=== PATIENT | female | born 1965 | race Hispanic/Latino ===

== ENCOUNTER 2022-04-13 15:31 | Emergency (ER) | payer OTHER, BC ==
[2022-04-13] MEDS ORDERED: Ketorolac Tromethamine 30 MG/ML VIAL IVP SCH (16:45)
== END 2022-04-13 17:27 | disposition home or self-care (01) ==
LOC: CSHERS 15:31
DX: S09.90XA Unspecified injury of head, initial encounter (principal); M54.9 Dorsalgia, unspecified; E03.9 Hypothyroidism, unspecified; V43.52XA Car driver injured in collision with other type car in traffic accident, initial encounter
CPT/HCPCS: 70450; 72100; 72170; 96374; G0390; J1885

== ENCOUNTER 2024-02-22 02:15 | Observation (INO) | payer BC ==
[2024-02-22] MEDS ORDERED: Aspirin Chewable 81 MG TAB ONE (02:43)
[2024-02-22] MEDS ORDERED: Nitroglycerin 2% Ointment 1 INCH/1 GM Packet ONE (02:43)
[2024-02-22 02:52] LABS: #Basophils 0.05 10x3/uL (0.0-0.2); #Eosinphils 0.39 10x3/uL (0.0-0.5); #Monocytes 0.52 10x3/uL (0.0-1.1); #Neutrophils 3.08 10x3/uL (1.5-8.4); %Basophils 0.7 % (0.0-2.0); %Eosinophils 5.7 % (0.0-6.0); %Lymphocytes 40.4 % (18.0-47.0); %Monocytes 7.6 % (0.0-10.0); %Neutrophils 45.5 % (40.0-75.0); Hematocrit 44.9 % (34.9-44.5); Hemoglobin 15.4 g/dL (12.0-15.5); Mean Corpuscular HGB CONC 34.3 g/dL (32.0-36.0); Mean Corpuscular Hemoglobin 31.7 pg (27.0-33.0); Mean Corpuscular Volume 92.4 fL (81.6-98.3); Mean Platelet Volume 11.5 fL (7.4-10.4); Platelet Count 193 10x3/uL (150-450); Red Blood Cell (RBC) Count 4.86 10x6/uL (3.90-5.03); White Blood Cell (WBC) Count 6.8 10x3/uL (3.5-10.5)
[2024-02-22 03:07] LABS: Troponin I Less than 0.010 ng/mL (< 0.028)
[2024-02-22 03:09] LABS: ALT (SGPT) 48 U/L (8-55); AST (SGOT) 40 U/L (5-34); Albumin 3.7 g/dL (3.5-5.0); Alkaline Phosphatase 137 U/L (40-110); Anion Gap 12 mmol/L (10-20); BUN (Urea Nitrogen) 12 mg/dL (9.8-20.1); Bilirubin, Total 0.4 mg/dL (0.2-1.2); Calc. Creatinine Clearance 0 mL/min (70-130); Calcium 9.2 mg/dL (7.8-10.44); Carbon Dioxide 25 mmol/L (22-29); Chloride 105 mmol/L (98-107); Estimated GFR 65; Globulin 3.4 g/dL (2.4-3.5); Glucose 106 mg/dL (70-105); Lipase 34 U/L (8-78); Potassium 3.7 mmol/L (3.5-5.1); Protein, Total 7.1 g/dL (6.0-8.3); Sodium 138 mmol/L (136-145)
[2024-02-22 04:58] LABS: Bilirubin Neg (Negative); Blood, Urine Negative (Negative); Clarity Clear (Clear); Glucose, Urine (Dipstick) Normal (Negative); Ketone, Urine Negative (Negative); Leukocyte Negative (Negative); Nitrite Negative (Negative); Protein, Urine (Dipstick) Negative (Neg-Trace); Urobilinogen Normal mg/dL (Less than 2)
[2024-02-22 05:08] LABS: Bacteria/HPF Rare-Few HPF (None Seen); CAUTI Indications for Culture Pelvic or flank pain; RBC/HPF 0-3 HPF (0-3); Squamous Epithelial 0-3 HPF (0-3); WBC/HPF 0-3 HPF (0-3)
[2024-02-22 05:09] LABS: Urine Culture Reflex No No
[2024-02-22 05:10] LABS: Troponin I Less than 0.010 ng/mL (< 0.028)
[2024-02-22] MEDS ORDERED: Ondansetron PF 4 MG/2 ML Vial IVP PRN (06:15)
[2024-02-22] MEDS ORDERED: Senokot S 8.6-50 MG TAB PO PRN (06:15)
[2024-02-22] MEDS ORDERED: Calcium Carbonate 500 MG ChewTAB PO PRN (06:15)
[2024-02-22 09:36] LABS: Troponin I Less than 0.010 ng/mL (< 0.028)
[2024-02-22] MEDS ORDERED: Acetaminophen 325 MG TAB ONE (09:48)
[2024-02-22] MEDS ORDERED: Metoprolol Tartrate 25 MG TAB ONE (09:49)
[2024-02-22] MEDS ORDERED: Losartan 25 MG TAB ONE (09:49)
[2024-02-22 09:52] LABS: Free T4 (Free Thyroxine) 0.85 ng/dL (0.70-1.48)
[2024-02-22] MEDS: Losartan 25 MG TAB PO SCH (09:56)
[2024-02-22] MEDS: Metoprolol Tartrate 25 MG TAB PO SCH (09:59)
[2024-02-22] MEDS: Acetaminophen 325 MG TAB PO SCH (09:59)
[2024-02-22] MEDS: Levothyroxine Sodium 50 MCG TAB PO SCH (10:30)
[2024-02-22] MEDS: Ibuprofen 600 MG TAB PO SCH (14:02)
[2024-02-22 15:39] VITALS: BP 127/72; TEMP 97.8
[2024-02-22] MEDS ORDERED: Atorvastatin Calcium 20 MG TAB PO SCH (21:00)
[2024-02-22] MEDS ORDERED: Enoxaparin 40 MG (0.4 mL) SYRINGE SC SCH (21:00)
[2024-02-23] MEDS ORDERED: Levothyroxine Sodium 50 MCG TAB PO SCH (06:00)
== END 2024-02-22 16:00 | disposition home or self-care (01) ==
LOC: CSHERS 02:15 → CSHERHOLD 06:02
PROVIDERS: ADMIT Student in an Organized Health Care Education/Training Program; ATTEND Student in an Organized Health Care Education/Training Program
PROC: B246ZZZ Ultrasonography of Right and Left Heart (ICD-10-PCS; principal; 2024-02-22)
DX: R07.9 Chest pain, unspecified (principal); I08.1 Rheumatic disorders of both mitral and tricuspid valves; I16.0 Hypertensive urgency; I10 Essential (primary) hypertension; E78.5 Hyperlipidemia, unspecified; E03.9 Hypothyroidism, unspecified; E66.01 Morbid (severe) obesity due to excess calories; Z79.890 Hormone replacement therapy; Z79.899 Other long term (current) drug therapy; Z88.5 Allergy status to narcotic agent
CPT/HCPCS: 36415; 71045; 80053; 81001; 83690; 83880; 84439; 84443; 84484; 85025; 93005; 93306; G0378